=== PATIENT | female | born 1990 | race Caucasian/White ===

== ENCOUNTER 2021-02-14 08:01 | Outpatient (CLI) | payer OTHER ==
[2021-02-14] MEDS ORDERED: Iopamidol 370 76% 100 ML VIAL ONE (12:33)
== END 2021-02-14 08:02 | disposition home or self-care (01) ==
LOC: CT 08:01
PROVIDERS: ATTEND Internal Medicine Hematology & Oncology
DX: C50.812 Malignant neoplasm of overlapping sites of left female breast (principal); M25.552 Pain in left hip; M25.562 Pain in left knee; C79.51 Secondary malignant neoplasm of bone; K76.9 Liver disease, unspecified; N28.1 Cyst of kidney, acquired; N83.00 Follicular cyst of ovary, unspecified side
CPT/HCPCS: 71260; 74177; 78306; A9503; Q9967

== ENCOUNTER 2021-02-14 15:58 | Outpatient (CLI) | payer OTHER ==
[2021-02-15 00:43] LABS: SARS-CoV-2 PCR by NAA Not Detected (NotDetected)
== END 2021-02-14 15:59 | disposition home or self-care (01) ==
LOC: LABBT 15:58
PROVIDERS: ATTEND Surgery
DX: Z01.812 Encounter for preprocedural laboratory examination (principal); C50.912 Malignant neoplasm of unspecified site of left female breast; Z20.822 Contact with and (suspected) exposure to COVID-19
CPT/HCPCS: 87635; U0003; U0005

== ENCOUNTER 2021-02-17 12:20 | Outpatient (CLI) | payer OTHER | END 2021-02-17 12:21 | disposition home or self-care (01) | LOC: ULT 12:20 | PROVIDERS: ATTEND Internal Medicine Hematology & Oncology | DX: Z51.11 Encounter for antineoplastic chemotherapy (principal); C50.812 Malignant neoplasm of overlapping sites of left female breast; Z79.899 Other long term (current) drug therapy | CPT/HCPCS: 93306 ==

== ENCOUNTER 2021-02-21 08:10 | Outpatient (CLI) | payer OTHER | END 2021-02-21 08:11 | disposition home or self-care (01) | LOC: PET 08:10 | PROVIDERS: ATTEND Internal Medicine Hematology & Oncology | DX: C50.912 Malignant neoplasm of unspecified site of left female breast (principal); C79.51 Secondary malignant neoplasm of bone; N63.20 Unspecified lump in the left breast, unspecified quadrant; K76.9 Liver disease, unspecified | CPT/HCPCS: 78815; A9552 ==

== ENCOUNTER 2021-02-26 06:57 | Outpatient (CLI) | payer OTHER ==
[2021-02-26] MEDS ORDERED: Iopamidol-370 76% 500 ML 1 ML ONE (08:48)
[2021-02-26] MEDS ORDERED: Magnevist 469MG/ML 20 ML VIAL ONE (09:07)
== END 2021-02-26 06:58 | disposition home or self-care (01) ==
LOC: CT 06:57 → BICCT 06:58
PROVIDERS: ATTEND Internal Medicine Hematology & Oncology
DX: C50.812 Malignant neoplasm of overlapping sites of left female breast (principal); C79.51 Secondary malignant neoplasm of bone
CPT/HCPCS: 70470; 72156; A9579; Q9967

== ENCOUNTER 2021-04-08 14:43 | Outpatient (CLI) | payer OTHER | END 2021-04-08 14:44 | disposition home or self-care (01) | LOC: BICULT 14:43 → EDSTATUS 15:00 | PROVIDERS: ATTEND Surgery | DX: C50.919 Malignant neoplasm of unspecified site of unspecified female breast (principal); N63.20 Unspecified lump in the left breast, unspecified quadrant; R93.89 Abnormal findings on diagnostic imaging of other specified body structures ==

== ENCOUNTER 2021-04-29 10:01 | Inpatient (IN) | payer OTHER ==
[2021-04-28 11:10] VITALS: BMI 17.7
[2021-04-29] MEDS ORDERED: Midazolam HCl 2 mg/2 ml Vial ONE (10:35)
[2021-04-29] MEDS ORDERED: Lidocaine 1% w/Epinephrine 1:100K 20 ML VIAL ONE (11:11)
[2021-04-29] MEDS ORDERED: Bupivacaine 0.25% HCL 30 ML VIAL ONE (11:11)
[2021-04-29] MEDS ORDERED: Fentanyl 100 MCG/2 ML VIAL ONE ×5 (12:18→16:46)
[2021-04-29] MEDS ORDERED: Dexamethasone 20 MG/5 ML VIAL ONE (12:29)
[2021-04-29] MEDS ORDERED: PROPOFOL 200 MG/20 ML VIAL ONE (12:29)
[2021-04-29] MEDS ORDERED: Lidocaine 1% PF 5 ML VIAL ONE (12:29)
[2021-04-29] MEDS ORDERED: Ondansetron PF 4 MG/2 ML Vial ONE ×2 (12:29→17:45)
[2021-04-29] MEDS ORDERED: Meperidine HCl/PF 25 MG/ML VIAL ONE (13:22)
[2021-04-29] MEDS ORDERED: Morphine 2 MG/ML VIAL ONE ×2 (16:32→16:37)
[2021-04-29] MEDS ORDERED: hydrALAZINE 20 MG/ML VIAL SLOW IVP PRN (18:57)
[2021-04-29] MEDS ORDERED: Dextrose 5% in Water 1,000 ML IV PRN (18:57)
[2021-04-29] MEDS ORDERED: Dextrose 50% Abboject 50 ML SYRINGE SLOW IVP PRN (18:57)
[2021-04-29] MEDS ORDERED: D5 1/2 NS w/20 mEq KCL 1,000 ML IV SCH (20:00)
[2021-04-29] MEDS: Fentanyl 100 MCG/2 ML VIAL SLOW IVP PRN ×2 (20:06→21:50)
[2021-04-29] MEDS: Ondansetron PF 4 MG/2 ML Vial IVP PRN (20:06)
[2021-04-29] MEDS: Ketorolac Tromethamine 30 MG/ML VIAL IVP PRN (21:04)
[2021-04-29] MEDS: Mirtazapine 15 MG TAB PO SCH (21:04)
[2021-04-29] MEDS: HYDROcodone/Acetaminophen 10/325 mg Tablet PO PRN (21:04)
[2021-04-29] MEDS: Famotidine/PF 20 mg/2ml Vial SLOW IVP SCH (21:04)
[2021-04-29] MEDS: ALPRAZolam 0.25 MG TAB PO SCH (21:04)
[2021-04-29] MEDS: Promethazine HCl 25 MG/ML VIAL IM PRN (21:17)
[2021-04-29] MEDS: Famotidine 20 MG TAB PO SCH (21:28)
[2021-04-30] MEDS: HYDROcodone/Acetaminophen 10/325 mg Tablet PO PRN ×5 (00:38→19:49)
[2021-04-30] MEDS: Fentanyl 100 MCG/2 ML VIAL SLOW IVP PRN ×2 (07:52→11:59)
[2021-04-30] MEDS: Ketorolac Tromethamine 30 MG/ML VIAL IVP PRN ×2 (09:47→19:48)
[2021-04-30] MEDS: Ondansetron PF 4 MG/2 ML Vial IVP PRN ×2 (09:49→16:39)
[2021-04-30] MEDS: DULoxetine 30 MG CAP PO SCH (09:53)
[2021-04-30] MEDS: Famotidine/PF 20 mg/2ml Vial SLOW IVP SCH ×2 (09:54→20:48)
[2021-04-30] MEDS: ALPRAZolam 0.25 MG TAB PO SCH ×2 (09:54→20:47)
[2021-04-30] MEDS: Famotidine 20 MG TAB PO SCH ×2 (09:57→20:47)
[2021-04-30] MEDS ORDERED: ALPRAZolam 0.25 MG TAB PO SCH (16:00)
[2021-04-30] MEDS: Promethazine HCl 25 MG/ML VIAL IM PRN (19:42)
[2021-04-30] MEDS: Mirtazapine 15 MG TAB PO SCH (20:47)
[2021-05-01 06:19] LABS: Hemoglobin 10.3 g/dL (12.0-16.0); Mean Corpuscular HGB CONC 36.3 g/dL (32.0-36.0); Mean Corpuscular Hemoglobin 34.5 pg (27.0-31.0); Mean Corpuscular Volume 94.9 fL (78.0-98.0); Mean Platelet Volume 7.2 fL (7.4-10.4); Platelet Count 211 thou/uL (130-400); White Blood Cell (WBC) Count 2.9 thou/uL (4.8-10.8)
[2021-05-01] MEDS: HYDROcodone/Acetaminophen 10/325 mg Tablet PO PRN ×4 (06:36→19:36)
[2021-05-01] MEDS: Ketorolac Tromethamine 30 MG/ML VIAL IVP PRN ×2 (06:37→19:30)
[2021-05-01] MEDS: Fentanyl 100 MCG/2 ML VIAL SLOW IVP PRN ×5 (06:50→20:48)
[2021-05-01] MEDS: Ondansetron PF 4 MG/2 ML Vial IVP PRN ×2 (07:13→16:21)
[2021-05-01 08:30] LABS: Lymphocytes 68 % (21-51); MDiff Complete? YES; Monocytes 9 % (0-10); Neutrophil 23 % (42-75); Platelet Morphology Comment Appears Adequate; RBC Morphology Normal
[2021-05-01] MEDS: Famotidine 20 MG TAB PO SCH ×2 (08:45→20:48)
[2021-05-01] MEDS: ALPRAZolam 0.25 MG TAB PO SCH ×2 (08:45→20:48)
[2021-05-01] MEDS: DULoxetine 30 MG CAP PO SCH (08:45)
[2021-05-01] MEDS: Famotidine/PF 20 mg/2ml Vial SLOW IVP SCH ×2 (08:51→21:46)
[2021-05-01] MEDS: Mirtazapine 15 MG TAB PO SCH (20:48)
[2021-05-02] MEDS: Fentanyl 100 MCG/2 ML VIAL SLOW IVP PRN ×2 (06:51→10:34)
[2021-05-02] MEDS: HYDROcodone/Acetaminophen 10/325 mg Tablet PO PRN (08:18)
[2021-05-02] MEDS: DULoxetine 30 MG CAP PO SCH (08:19)
[2021-05-02] MEDS: ALPRAZolam 0.25 MG TAB PO SCH (08:19)
[2021-05-02] MEDS: Famotidine 20 MG TAB PO SCH (08:19)
[2021-05-02] MEDS: Famotidine/PF 20 mg/2ml Vial SLOW IVP SCH (08:34)
[2021-05-02] MEDS: Ondansetron PF 4 MG/2 ML Vial IVP PRN (11:24)
[2021-05-02 11:32] VITALS: BP 115/77; TEMP 98.4
== END 2021-05-02 11:57 | disposition home or self-care (01) | DRG 200 ==
LOC: SDC 10:01 → SURG B 17:18 → OBSVTOIN 05-01 16:03
PROVIDERS: ADMIT Surgery; ATTEND Surgery
PROC: 0W9930Z Drainage of Right Pleural Cavity with Drainage Device, Percutaneous Approach (ICD-10-PCS; principal; 2021-04-29)
DX: J95.811 Postprocedural pneumothorax (principal); C78.7 Secondary malignant neoplasm of liver and intrahepatic bile duct; C50.912 Malignant neoplasm of unspecified site of left female breast; Y84.8 Other medical procedures as the cause of abnormal reaction of the patient, or of later complication, without mention of misadventure at the time of the procedure; F41.9 Anxiety disorder, unspecified; F32.9 Major depressive disorder, single episode, unspecified; Z79.899 Other long term (current) drug therapy; Z79.811 Long term (current) use of aromatase inhibitors; Z80.41 Family history of malignant neoplasm of ovary; Z80.0 Family history of malignant neoplasm of digestive organs; Z80.8 Family history of malignant neoplasm of other organs or systems; Z17.0 Estrogen receptor positive status [ER+]
CPT/HCPCS: 36415; 71045; 85025; 96372; 96374; 96375; 96376; C1788; G0378; J0690; J1100; J1642; J1885; J2175; J2250; J2270; J2405; J2550; J2704; J3010; J3480; S0020; S0028

== ENCOUNTER 2021-10-07 10:53 | Outpatient (CLI) | payer OTHER | END 2021-10-07 10:54 | disposition home or self-care (01) | LOC: PET 10:53 | PROVIDERS: ATTEND Internal Medicine Hematology & Oncology | DX: C79.51 Secondary malignant neoplasm of bone (principal); C50.812 Malignant neoplasm of overlapping sites of left female breast; C50.212 Malignant neoplasm of upper-inner quadrant of left female breast; Z90.12 Acquired absence of left breast and nipple | CPT/HCPCS: 78815; A9552 ==

== ENCOUNTER 2021-11-10 10:07 | Outpatient (CLI) | payer OTHER | END 2021-11-10 10:08 | disposition home or self-care (01) | LOC: SCSMRI 10:07 | PROVIDERS: ATTEND Internal Medicine Hematology & Oncology | DX: C50.212 Malignant neoplasm of upper-inner quadrant of left female breast (principal); C50.812 Malignant neoplasm of overlapping sites of left female breast; C79.51 Secondary malignant neoplasm of bone; R51.9 Headache, unspecified; D70.8 Other neutropenia; R11.0 Nausea; G93.89 Other specified disorders of brain | CPT/HCPCS: 70553 ==

== ENCOUNTER 2022-02-25 10:31 | Emergency (ER) | payer OTHER ==
[2022-02-25 13:00] LABS: #Lymphocytes 0.6 thou/uL (1.20-3.40); #Monocytes 0.2 thou/uL (0.11-0.59); #Neutrophils 1.8 thou/uL (1.40-6.50); %Basophils 0.2 % (0.0-1.0); %Eosinophils 1.5 % (0.0-10.0); %Lymphocytes 23.3 % (21.0-51.0); %Monocytes 6.3 % (0.0-10.0); %Neutrophils 68.7 % (42.0-75.0); Hemoglobin 12.2 g/dL (12.0-16.0); Mean Corpuscular HGB CONC 35.3 g/dL (32.0-36.0); Mean Corpuscular Hemoglobin 35.7 pg (27.0-31.0); Platelet Count 129 thou/uL (130-400); RBC Distribution Width 10.5 % (11.5-14.5); Red Blood Cell (RBC) Count 3.43 mill/uL (4.20-5.40); White Blood Cell (WBC) Count 2.7 thou/uL (4.8-10.8)
[2022-02-25 13:31] LABS: BHCG - Serum Negative (NEGATIVE); Pregs Control Background? CLEAR/WHITE (CLR/WHITE); Pregs Control Bar Appear? YES (CONTROL BAR)
[2022-02-25 13:37] LABS: ALT (SGPT) 15 U/L (8-55); AST (SGOT) 17 U/L (5-34); Albumin 4.4 g/dL (3.5-5.0); Alkaline Phosphatase 50 U/L (40-110); Anion Gap 12 mmol/L (10-20); BUN (Urea Nitrogen) 8 mg/dL (7.0-18.7); Bilirubin, Total 0.5 mg/dL (0.2-1.2); Calc. Creatinine Clearance 0 mL/min (70-130); Calcium 8.8 mg/dL (7.8-10.44); Carbon Dioxide 25 mmol/L (22-29); Chloride 106 mmol/L (98-107); Globulin 3.1 g/dL (2.4-3.5); Glucose 88 mg/dL (70-105); Magnesium 2.1 mg/dL (1.6-2.6); Potassium 4.6 mmol/L (3.5-5.1); Protein, Total 7.5 g/dL (6.0-8.3); Sodium 138 mmol/L (136-145)
== END 2022-02-25 14:19 | disposition home or self-care (01) ==
LOC: ERS 10:31
DX: R20.2 Paresthesia of skin (principal); H53.8 Other visual disturbances; Z85.3 Personal history of malignant neoplasm of breast; Z79.899 Other long term (current) drug therapy
CPT/HCPCS: 36415; 70450; 80053; 83735; 84703; 85025; 93005; 96374; J1642

== ENCOUNTER 2022-04-17 08:45 | Outpatient (CLI) | payer OTHER | END 2022-04-17 08:46 | disposition home or self-care (01) | LOC: PET 08:45 | PROVIDERS: ATTEND Internal Medicine Hematology & Oncology | DX: C50.812 Malignant neoplasm of overlapping sites of left female breast (principal); D70.8 Other neutropenia; C79.51 Secondary malignant neoplasm of bone; C50.212 Malignant neoplasm of upper-inner quadrant of left female breast | CPT/HCPCS: 78815; A9552 ==

== ENCOUNTER 2022-07-15 10:04 | Outpatient (CLI) | payer OTHER, SELFPAY | END 2022-07-15 10:05 | disposition home or self-care (01) | LOC: NM 10:04 | PROVIDERS: ATTEND Family Medicine | DX: C50.919 Malignant neoplasm of unspecified site of unspecified female breast (principal); C79.51 Secondary malignant neoplasm of bone; R07.81 Pleurodynia; M25.559 Pain in unspecified hip | CPT/HCPCS: 78306; A9503; J1642 ==

== ENCOUNTER 2022-08-13 11:45 | Outpatient (CLI) | payer OTHER | END 2022-08-13 11:46 | disposition home or self-care (01) | LOC: PET 11:45 | PROVIDERS: ATTEND Internal Medicine Hematology & Oncology | DX: C50.912 Malignant neoplasm of unspecified site of left female breast (principal); C79.51 Secondary malignant neoplasm of bone; C78.7 Secondary malignant neoplasm of liver and intrahepatic bile duct; R91.1 Solitary pulmonary nodule; Z17.0 Estrogen receptor positive status [ER+] | CPT/HCPCS: 78815; A9552 ==